=== PATIENT | female | born 1975 | race American Indian/Alaskan Native ===

== ENCOUNTER 2018-09-08 00:17 | Emergency (ER) | payer SELFPAY ==
[2018-09-08] MEDS ORDERED: SOLU-Medrol IV ONE (00:58)
[2018-09-08] MEDS ORDERED: NACL 0.9% 1000 ML 1,000 ML IV ONE (00:58)
[2018-09-08] MEDS ORDERED: PEPCID PO ONE (00:58)
[2018-09-08] MEDS ORDERED: BENADRYL IV STA (00:58)
--- NOTE | 2018-09-08 01:27 | Emergency Department Report ---
ED Allergic Reaction HPI - General Chief complaint: Allergic Reaction Stated complaint: FACE RASH Time Seen by Provider: 09/08/18 00:57 Source: patient Mode of arrival: Ambulatory Limitations: No Limitations - History of Present Illness Initial Comments: 42-year-old French female to emergency department complaining of a 2 day history of allergic reaction to an unknown substance having pruritic rashes diffusely over her body which is not responding to [id number] treatment. Was chest pain or shortness of breath MD Complaint: allergic reaction, hives -: Gradual Exposure: unknown Symptoms: itching Severity: mild Treatment Prior to Arrival: benadryl Previous Allergy History: none - Related Data Previous Rx's Medication Instructions Recorded Last Taken Type methylPREDNISolone [Medrol] 4 mg PO QAM #1 tab.ds.pk 08/07/18 Unknown Rx Famotidine [Pepcid] 40 mg PO DAILY #14 tablet 09/08/18 Unknown Rx Mometasone Furoate [Elocon] 1 applic TP BID #45 oint...g. 09/08/18 Unknown Rx hydrOXYzine HCL [Atarax] 25 mg PO Q6HR PRN #20 tablet 09/08/18 Unknown Rx predniSONE [Deltasone] 50 mg PO QDAY #5 tab 09/08/18 Unknown Rx Allergies Allergy/AdvReac Type Severity Reaction Status Date / Time No Known Allergies Allergy Unverified 08/07/18 10:14 ED Review of Systems ROS: Stated complaint: FACE RASH Other details as noted in HPI Constitutional: denies: chills, fever Eyes: denies: eye pain, eye discharge, vision change ENT: denies: ear pain, throat pain Respiratory: denies: cough, shortness of breath, wheezing Cardiovascular: denies: chest pain, palpitations Endocrine: no symptoms reported Gastrointestinal: denies: abdominal pain, nausea, diarrhea Genitourinary: denies: urgency, dysuria, discharge Musculoskeletal: denies: back pain, joint swelling, arthralgia Skin: pruritus. denies: rash, lesions Neurological: denies: headache, weakness, paresthesias Psychiatric: denies: anxiety, depression Hematological/Lymphatic: denies: easy bleeding, easy bruising ED Past Medical Hx - Past Medical History Previous Medical History?: No - Surgical History Past Surgical History?: Yes Additional Surgical History: Right ankle 2005 - Social History Smoking Status: Never Smoker Substance Use Type: Alcohol - Medications Home Medications: Home Medications Medication Instructions Recorded Confirmed Last Taken Type methylPREDNISolone [Medrol] 4 mg PO QAM #1 tab.ds.pk 08/07/18 Unknown Rx Famotidine [Pepcid] 40 mg PO DAILY #14 tablet 09/08/18 Unknown Rx Mometasone Furoate [Elocon] 1 applic TP BID #45 oint...g. 09/08/18 Unknown Rx hydrOXYzine HCL [Atarax] 25 mg PO Q6HR PRN #20 tablet 09/08/18 Unknown Rx predniSONE [Deltasone] 50 mg PO QDAY #5 tab 09/08/18 Unknown Rx ED Physical Exam - General Limitations: No Limitations General appearance: alert, in no apparent distress - Head Head exam: Present: atraumatic, normocephalic - Eye Eye exam: Present: normal appearance, PERRL, EOMI Pupils: Present: normal accommodation - ENT ENT exam: Present: normal exam, mucous membranes moist, other (airway patent. Tongue and uvula midline, no stridor, no wheezing. No drooling. Normal voice) - Neck Neck exam: Present: normal inspection, full ROM - Respiratory Respiratory exam: Present: normal lung sounds bilaterally. Absent: respiratory distress, wheezes, rales, rhonchi, stridor, chest wall tenderness - Cardiovascular Cardiovascular Exam: Present: regular rate, normal rhythm. Absent: systolic murmur, diastolic murmur, rubs, gallop - GI/Abdominal GI/Abdominal exam: Present: soft, normal bowel sounds - Extremities Exam Extremities exam: Present: normal inspection - Back Exam Back exam: Present: normal inspection - Neurological Exam Neurological exam: Present: alert, oriented X3 - Psychiatric Psychiatric exam: Present: normal affect, normal mood - Skin Skin exam: Present: warm, dry, intact, normal color, urticaria. Absent: rash, diaphoretic, erythema ED Course Vital Signs 09/08/18 00:49 Temperature 97.9 F Pulse Rate 74 Respiratory 16 Rate Blood Pressure 122/83 O2 Sat by Pulse 99 Oximetry - Reevaluation(s) Reevaluation #1: 09/08/18 02:27 Symptoms improve after utilization of the medication. Rash is present but reduced. No wheezing, no dysphagia, no odontophagia, no stridor. No angioedema ED Medical Decision Making - Medical Decision Making Discussed with the patient her response to the medication was. She states she has improved and the itching has improved as well. The rash also has improved but is still present. Upon further discussion evaluation. She has pictures in a foam and is asking questions about what the insect resembles which it is resembling a bedbug. We discussed treatment for this and and discussed the importance of follow-up. Critical care attestation.: If time is entered above; I have spent that time in minutes in the direct care of this critically ill patient, excluding procedure time. ED Disposition Clinical Impression: Allergic reaction Disposition: DC-01 TO HOME OR SELFCARE Is pt being admited?: No Does the pt Need Aspirin: No Condition: Stable Instructions: Urticaria (ED), Insect Bite or Sting (ED) Prescriptions: Famotidine [Pepcid] 40 mg PO DAILY #14 tablet hydrOXYzine HCL [Atarax] 25 mg PO Q6HR PRN #20 tablet PRN Reason: Itching Mometasone Furoate [Elocon] 1 applic TP BID #45 oint...g. predniSONE [Deltasone] 50 mg PO QDAY #5 tab Referrals: PRIMARY CARE, [Primary Care Provider] - 3-5 Days [facility] [Provider Group] - 3-5 Days
[2018-09-08 03:25] VITALS: BP 112/81
== END 2018-09-08 03:23 | disposition home or self-care (01) ==
LOC: ED 00:17
DX: T78.40XA Allergy, unspecified, initial encounter (principal); Y92.89 Other specified places as the place of occurrence of the external cause
CPT/HCPCS: 96374; 96375; 99282; J1200; J2930; J7030

== ENCOUNTER 2018-10-31 08:15 | Outpatient (CLI) | payer OTHER ==
--- NOTE | 2018-10-31 13:13 | Mammography Report ---
Bilateral mammogram: No previous studies available. CAD study utilized. Findings: Scattered glandular parenchyma bilaterally. Focal 3 mm asymmetry upper-outer anterior right breast and upper anterior right breast. Focal asymmetry subareolar area left breast and mid left breast. Focal dense asymmetry lower left axilla. No microcalcification. Impression: Focal asymmetries right and left breast. Comparison with previous studies is recommended. If previous studies are not available Spot compression and if necessary sonographic examination advised. BI-RADS CATEGORY: 0 = Needs additional imaging evaluation ACR BI-RADS MAMMOGRAPHIC CODES: 0 = Needs additional imaging evaluation; 1 = Negative; 2 = Benign; 3 = Probably benign; 4 = Suspicious; 5 = Malignant; 6 = Known biopsy-proven malignancy COMMENT: 1. Dense breast tissue, i.e., adenosis, fibrocystic changes, etc., may obscure an underlying neoplasm. 2. Approximately 10% of cancers are not detected with mammography. 3. A negative mammography report should not delay biopsy if a clinically suspicious mass is present. COMMENT: Patient follow-up letters are generated in [employer].
== END 2018-10-31 08:16 | disposition home or self-care (01) ==
LOC: MAMMO 08:15
PROVIDERS: ATTEND Clinical Nurse Specialist Adult Health
DX: Z12.31 Encounter for screening mammogram for malignant neoplasm of breast (principal)
CPT/HCPCS: 77067

== ENCOUNTER 2018-12-28 22:00 | Emergency (ER) | payer OTHER ==
[2018-12-28 22:37] VITALS: BP 111/82
[2018-12-28] MEDS ORDERED: NACL 0.9% 1000 ML 1,000 ML IV ONE (22:51)
[2018-12-28 23:15] LABS: Basophils % (Auto) 0.4 % (0.0-1.8); Eosinophils # (Auto) 0.2 K/mm3 (0.0-0.4); Eosinophils % (Auto) 2.7 % (0.0-4.3); Hemoglobin 13.4 gm/dl (10.1-14.3); Lymphocytes # (Auto) 2.2 K/mm3 (1.2-5.4); Lymphocytes % (Auto) 28.1 % (13.4-35.0); Mean Corpuscular HGB Conc 34 % (30-34); Mean Corpuscular Volume 96 fl (79-97); Monocytes # (Auto) 0.8 K/mm3 (0.0-0.8); Monocytes % (Auto) 10.5 % (0.0-7.3); Platelet Count 170 K/mm3 (140-440); Red Blood Count 4.19 M/mm3 (3.65-5.03); Red Cell Distribution Width 14.1 % (13.2-15.2)
[2018-12-28 23:44] LABS: Alanine Aminotransferase 9 units/L (7-56); Albumin 4.4 g/dL (3.9-5); BUN/Creatinine Ratio 14; Blood Urea Nitrogen 11 mg/dL (7-17); Calcium 9.7 mg/dL (8.4-10.2); Hemolysis Index 14
[2018-12-29] MEDS ORDERED: TYLENOL ONE (01:12)
[2018-12-29] MEDS ORDERED: IBUPROFEN PO ONE ×2 (01:12→01:13)
[2018-12-29] MEDS ORDERED: TYLENOL PO ONE (01:12)
[2018-12-29 01:59] LABS: Bilirubin,Urine NEG (Negative); Blood,Urine SM (Negative); Color,Urine Yellow (Yellow); Protein,Urine <15 mg/dL mg/dL (Negative); Urobilinogen,Urine < 2.0 mg/dL (<2.0)
--- NOTE | 2018-12-29 02:13 | Emergency Department Report ---
ED Abdominal Pain HPI - General Chief Complaint: Abdominal Pain Stated Complaint: SIDE PAIN Time Seen by Provider: 12/29/18 01:23 Source: patient Mode of arrival: Ambulatory Limitations: No Limitations - History of Present Illness Initial Comments: 43 y/o AAF with left side pain. Worst with taking a deep breath reaching or lying on the left side. Patient has taken nothing for pain. She denies any nausea no vomiting no hematuria and no vaginal discharge or constipation. Patient denies any trauma to her left side. -: days(s) (4) Location: L flank Radiation: none Migration to: no migration Severity scale (0 -10): 4 Quality: sharp Consistency: constant Improves With: nothing Worsens With: other (deep breath, reaching up and laying on left side) - Related Data LMP Date: 11/13/18 Previous Rx's Medication Instructions Recorded Last Taken Type methylPREDNISolone [Medrol] 4 mg PO QAM #1 tab.ds.pk 08/07/18 Unknown Rx Famotidine [Pepcid] 40 mg PO DAILY #14 tablet 09/08/18 Unknown Rx Mometasone Furoate [Elocon] 1 applic TP BID #45 oint...g. 09/08/18 Unknown Rx hydrOXYzine HCL [Atarax] 25 mg PO Q6HR PRN #20 tablet 09/08/18 Unknown Rx predniSONE [Deltasone] 50 mg PO QDAY #5 tab 09/08/18 Unknown Rx Ibuprofen [Motrin 600 MG tab] 600 mg PO Q8H PRN #15 tablet 12/29/18 Unknown Rx Allergies Allergy/AdvReac Type Severity Reaction Status Date / Time No Known Allergies Allergy Unverified 08/07/18 10:14 ED Review of Systems ROS: Stated complaint: SIDE PAIN Other details as noted in HPI Comment: All other systems reviewed and negative Constitutional: denies: chills, fever ED Past Medical Hx - Past Medical History Previous Medical History?: No - Surgical History Past Surgical History?: Yes Additional Surgical History: Right ankle 2006 - Social History Smoking Status: Never Smoker Substance Use Type: Alcohol - Medications Home Medications: Home Medications Medication Instructions Recorded Confirmed Last Taken Type methylPREDNISolone [Medrol] 4 mg PO QAM #1 tab.ds.pk 08/07/18 Unknown Rx Famotidine [Pepcid] 40 mg PO DAILY #14 tablet 09/08/18 Unknown Rx Mometasone Furoate [Elocon] 1 applic TP BID #45 oint...g. 09/08/18 Unknown Rx hydrOXYzine HCL [Atarax] 25 mg PO Q6HR PRN #20 tablet 09/08/18 Unknown Rx predniSONE [Deltasone] 50 mg PO QDAY #5 tab 09/08/18 Unknown Rx Ibuprofen [Motrin 600 MG tab] 600 mg PO Q8H PRN #15 tablet 12/29/18 Unknown Rx ED Physical Exam - General Limitations: No Limitations General appearance: alert, in no apparent distress - Head Head exam: Present: atraumatic, normocephalic - Eye Eye exam: Present: normal appearance - ENT ENT exam: Present: mucous membranes moist - Respiratory Respiratory exam: Present: normal lung sounds bilaterally, chest wall tenderness (left lower rib pain). Absent: respiratory distress - Cardiovascular Cardiovascular Exam: Present: regular rate, normal rhythm. Absent: systolic murmur, diastolic murmur, rubs, gallop - Neurological Exam Neurological exam: Present: alert, oriented X3 - Psychiatric Psychiatric exam: Present: normal affect, normal mood - Skin Skin exam: Present: warm, dry, intact, normal color. Absent: rash ED Course Vital Signs 12/28/18 12/28/18 22:35 22:48 Temperature 98.5 F 98.5 F Pulse Rate 90 89 Respiratory 16 18 Rate Blood Pressure 111/82 111/82 O2 Sat by Pulse 99 100 Oximetry ED Medical Decision Making - Lab Data Result diagrams: 12/28/18 23:03 12/28/18 23:03 - Radiology Data Radiology results: report reviewed Patient: JOSE RAFAEL MENDOZA MR #: [id number] : 1975 Acct:[id number] Age/Sex: 43 / F ADM Date: 12/28/18 Loc: ED Attending Dr: Ordering Physician: MALIA LEON Date of Service: 12/29/18 Procedure(s): XR ribs UNI w PA chest 3+V LT Accession Number(s): [id number] cc: MALIA LEON Fluoro Time In Minutes: PROCEDURE: XR RIBS UNI W PA CHEST 3+V LT TECHNIQUE: A PA view the chest was obtained along with 2 views of the left ribs. HISTORY: rib tenderness left side COMPARISONS: 08/07/2018 FINDINGS: There is no evidence of acute left-sided rib fracture. The lungs are clear. There is no pneumothorax or effusion. The heart size is normal. The dorsal spine reveals a dextro scoliosis of the mid thoracic spine. IMPRESSION: No evidence of acute left-sided rib fracture. No acute process in the chest.. This document is electronically signed by Leeanne Isaac MD., December 29 2018 02:57:42 AM ET Transcribed By: RB Dictated By: LEEANNE ISAAC MD Electronically Authenticated By: LEEANNE ISAAC MD Signed Date/Time: 12/29/18299 DD/ 0 TD/TT: 12/29/18241 - Medical Decision Making Patient has been evaluated by this provider fast. Chest x-ray and rib series ordered Critical care attestation.: If time is entered above; I have spent that time in minutes in the direct care of this critically ill patient, excluding procedure time. ED Disposition Clinical Impression: Rib pain on left side Disposition: DC-01 TO HOME OR SELFCARE Is pt being admited?: No Does the pt Need Aspirin: No Condition: Stable Instructions: Abdominal Pain (ED), Chest Pain (ED) Additional Instructions: X-rays with negative. Continue with ibuprofen and follow up with her primary care provider for symptoms persist or gets worse. Prescriptions: Ibuprofen [Motrin 600 MG tab] 600 mg PO Q8H PRN #15 tablet PRN Reason: Pain Referrals: [facility] MD LEON [Primary Care Provider] - 3-5 Days Forms: Work/School Release Form(ED)
--- NOTE | 2018-12-29 03:00 | XRay Report ---
PROCEDURE: XR RIBS UNI W PA CHEST 3+V LT TECHNIQUE: A PA view the chest was obtained along with 2 views of the left ribs. HISTORY: rib tenderness left side COMPARISONS: 08/07/2018 FINDINGS: There is no evidence of acute left-sided rib fracture. The lungs are clear. There is no pneumothorax or effusion. The heart size is normal. The dorsal spine reveals a dextro scoliosis of the mid thoraci c spine. IMPRESSION: No evidence of acute left-sided rib fracture. No acute process in the chest.. This document is electronically signed by Hernando Isaac MD., December 29 2018 02:57:42 AM ET
== END 2018-12-29 04:50 | disposition home or self-care (01) ==
LOC: ED 22:00
DX: R07.81 Pleurodynia (principal)
CPT/HCPCS: 36415; 80053; 81001; 84703; 85025